=== PATIENT | male | born 1950 | race Caucasian/White ===

== ENCOUNTER → 2017-08-05 | Day surgery (SDC) | payer OTHER ==
[~2017-08-05] VITALS: Ht 177.8 cm; Wt 97.5 kg
[~2017-08-05] MED LIST: ASPIRIN EC81 M1 PO; GLUCOPHAGE1000 M1 PO; LISINOPRIL30 M1 PO; VITAMIN D2000 UNI1 PO
--- NOTE | 2017-08-05 14:43 | Operative Report ---
Operative/Inv Procedure Report Surgery Date: 08/05/17 Name of Procedure: Hemorrhoidectomy Pre-Operative Diagnosis: Fourth degree hemorrhoids Post-Operative Diagnosis: Same Estimated Blood Loss: scant Surgeon/Scheduling Specialist: Franky Albert MD Anesthesia: local monitored anesthesi IV Fluids: 500 mL crystalloid Specimens: Hemorrhoids Complications: None Condition: Stable in recovery room Operative Indication: Hemorrhoidal prolapse and bleeding Operative/Procedure Note Note: After informed consent was obtained, the patient was placed on the operating table in the prone jackknife position. After successful induction of deep IV sedation, the patient's buttocks were taped apart and the perianal area was prepped in the usual fashion. At this time approximately 10 mL of 1/2% Marcaine solution was injected subcutaneously around the perianal area. An additional 10 mL of the same solution a deeply into the surrounding muscular tissue for good sphincter relaxation. With good local anesthesia and placed the anus and perianal area were examined using a Hill-Borges retractor ring a large prolapsing internal and external hemorrhoidal complex in the right anterior position. The external most portion of the hemorrhoid was grasped with an Allis clamp and retracted outward. Sharp dissection was begun from external to internal dissecting the entire complex off the underlying internal sphincter base. The hemorrhoid was dissected down to approximately based mucosal pedicle. The pedicle was ligated with a single 2-0 Vicryl suture ligature. The hemorrhoidal tissue was excised and sent to pathology for permanent section. The resulting wound in the lower rectal mucosa and anal canal was closed using running interlocking 2-0 Vicryl suture material. The external most portion on the perianal skin was left open for drainage. Impletion of the procedure hemostasis was intact and the anal orifice was patent. Fresh bacitracin dressing was applied and the patient was taken to recovery in satisfactory condition Findings: See above procedure note Discharge Disposition: Same Day Admissions
== END ==
LOC: STS 03:24
DX: K64.3 Fourth degree hemorrhoids (principal); K62.5 Hemorrhage of anus and rectum; I10 Essential (primary) hypertension; E11.9 Type 2 diabetes mellitus without complications; Z79.84 Long term (current) use of oral hypoglycemic drugs
CPT/HCPCS: J0131; J2250; J3490